=== PATIENT | female | born 1960 | race African-American/Black ===

== ENCOUNTER 2021-01-31 11:24 | Emergency (ER) | payer BC ==
[~2021-01-31] VITALS: Ht 160 cm; Wt 102.1 kg
[2021-01-31 11:53] LABS: ABSOLUTE NEUTROPHILS 8.1 thou/uL (1.4-8.2); BASOPHILS 0.4 % (0.0-2.0); HEMOGLOBIN 13.6 gm/dL (12.0-15.0); LYMPHOCYTES 11.3 % (24.0-44.0); MCH 28.9 pg (26.0-34.0); MCHC 33.2 g/dL (28.0-37.0); MCV 87.3 fL (80.0-100.0); MONOCYTES 1.7 % (1.0-8.0); PLATELET COUNT 238 thou/uL (150-400); POLYS 86.6 % (36.0-66.0); RDW 13.5 % (10.5-14.5); WBC 9.4 thou/uL (4.0-11.0)
[2021-01-31 11:59] LABS: ANION GAP 13 mmol/L (7-16); BUN 14 mg/dL (7-18); CHLORIDE 102 mmol/L (98-107); CO2 24 mmol/L (21-32); CREATININE 0.9 mg/dL (0.6-1.0); GLUCOSE 303 mg/dL (74-106); SODIUM 139 mmol/L (136-145)
[2021-01-31 12:00] LABS: POTASSIUM 4.1 mmol/L (3.5-5.1)
[2021-01-31 12:09] LABS: SGOT 19 U/L (15-37); SGPT 20 U/L (14-59); TOTAL BILIRUBIN 0.6 mg/dL (0.2-1.0); TOTAL PROTEIN 7.9 g/dL (6.4-8.2); TROPONIN-I <0.06 ng/mL (<0.06)
[2021-01-31 13:08] LABS: URINE BILIRUBIN NEGATIVE (Negative); URINE BLOOD TRACE (Negative); URINE CLARITY CLEAR; URINE COLOR YELLOW; URINE GLUCOSE-RANDOM* 3+ (Negative); URINE KETONES 1+ (Negative); URINE LEUKOCYTES-REFLEX NEGATIVE (Negative); URINE NITRITE-REFLEX NEGATIVE (Negative); URINE PROTEIN (DIPSTICK) NEGATIVE (Negative); URINE SPECIFIC GRAVITY 1.015 (1.005-1.035); URINE UROBILINOGEN 0.2 E.U./dl (0.2-1.0)
[2021-01-31 14:30] LABS: AMP/METHAMP Negative (Negative); BARBITURATES Negative (Negative); BENZODIAZEPINES Negative (Negative); COCAINE Negative (Negative); METHADONE Negative (Negative); OPIATES Negative (Negative); PCP Negative (Negative)
[2021-01-31] MEDS ORDERED: COMPAZINE10 M2 PO (16:04)
[2021-01-31] MEDS ORDERED: NORCO5 PO (16:04)
[2021-01-31] MEDS ORDERED: IMODIUM A-D2 MG PO (16:04)
[2021-01-31] MEDS ORDERED: BENTYL 10 MG CA10 MG PO (16:04)
[2021-01-31 16:09] VITALS: BP 143/79
--- NOTE | 2021-02-01 08:43 | EKG ---
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
== END 2021-01-31 16:12 | disposition home or self-care (01) ==
LOC: ER 11:24
PROVIDERS: Emergency Medicine
DX: E11.65 Type 2 diabetes mellitus with hyperglycemia (principal); Z20.822 Contact with and (suspected) exposure to COVID-19; F12.10 Cannabis abuse, uncomplicated; R11.2 Nausea with vomiting, unspecified; R07.89 Other chest pain; R19.7 Diarrhea, unspecified; R10.13 Epigastric pain; K21.9 Gastro-esophageal reflux disease without esophagitis; F17.210 Nicotine dependence, cigarettes, uncomplicated; Z91.041 Radiographic dye allergy status

== ENCOUNTER 2021-07-19 10:41 | Emergency (ER) | payer BC ==
[~2021-07-19] VITALS: Ht 160 cm; Wt 99.3 kg
[~2021-07-19 10:41] MED LIST: BENTYL 10 MG CA10 MG PO; COMPAZINE10 M2 PO; IMODIUM A-D2 MG PO; NORCO5 PO
[2021-07-19] MEDS ORDERED: LOSARTAN PO (11:10)
[2021-07-19] MEDS ORDERED: JANUVIA100 MG PO (11:10)
[2021-07-19] MEDS ORDERED: AMLODIPINE PO (11:11)
[2021-07-19] MEDS ORDERED: GLIMEPIRIDE PO (11:11)
[2021-07-19 11:18] LABS: URINE BLOOD 2+ (Negative); URINE COLOR YELLOW; URINE GLUCOSE-RANDOM* 3+ (Negative); URINE KETONES TRACE (Negative); URINE LEUKOCYTES-REFLEX NEGATIVE (Negative); URINE NITRITE-REFLEX NEGATIVE (Negative); URINE PROTEIN (DIPSTICK) 2+ (Negative); URINE SPECIFIC GRAVITY >= 1.030 (1.005-1.035); URINE UROBILINOGEN 0.2 E.U./dl (0.2-1.0)
[2021-07-19 11:23] LABS: URINE CLARITY HAZY
[2021-07-19 11:24] LABS: ICTOTEST (BILI CONFIRMATORY) Negative (Negative); URINE BILIRUBIN NEGATIVE (Negative)
[2021-07-19 11:27] LABS: ABSOLUTE NEUTROPHILS 6.7 thou/uL (1.4-8.2); BASOPHILS 0.8 % (0.0-2.0); EOSINOPHILS 0.7 % (0.0-3.0); HEMATOCRIT 42.9 % (37.0-47.0); HEMOGLOBIN 14.3 gm/dL (12.0-15.0); MCH 28.7 pg (26.0-34.0); MCHC 33.3 g/dL (28.0-37.0); MCV 86.3 fL (80.0-100.0); MONOCYTES 6.6 % (1.0-8.0); PLATELET COUNT 303 thou/uL (150-400); POLYS 71.9 % (36.0-66.0); RBC 4.97 mil/uL (4.20-5.00); RDW 13.6 % (10.5-14.5); WBC 9.4 thou/uL (4.0-11.0)
[2021-07-19 11:44] LABS: CALCIUM 9.4 mg/dL (8.5-10.1); CREATININE 1.3 mg/dL (0.6-1.0); POTASSIUM 3.6 mmol/L (3.5-5.1)
[2021-07-19 11:49] LABS: TOTAL BILIRUBIN 0.7 mg/dL (0.2-1.0); TOTAL PROTEIN 8.9 g/dL (6.4-8.2)
[2021-07-19] MEDS ORDERED: BENTYL 10 MG CA10 M1 PO (12:13)
[2021-07-19] MEDS ORDERED: ONDANSETRON HCL4 M2 PO (12:13)
[2021-07-19 12:23] LABS: SQUAMOUS >10 Many /LPF (0-3)
[2021-07-19 12:25] LABS: BACTERIA-REFLEX >30 Many /HPF (None Seen); CRYSTALS None Seen /LPF (None Seen); HYALINE CASTS 0-3 Few /LPF (None Seen); MUCUS 4-6 Moderate strn/LPF (None Seen); URINE RBC 1-2 Rare /HPF (NONE SEEN); URINE WBC-REFLEX 6-15 Few /HPF (0-5)
[2021-07-19 12:49] VITALS: BP 156/88
--- NOTE | 2021-07-20 07:12 | EKG ---
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 : 1960 Requested By: Puneet Lowry Order Number: [id number] MD: Frank Marquis Measurements Intervals [place] Rate: 84 P: 43 PA: 152 QRS: -31 QRSD: 83 T: 43 QT: 397 QTc: 470 Interpretive Statements Sinus rhythm Left ventricular hypertrophy Baseline wander in lead(s) I,II,aVR Compared to ECG 01/31/2021 11:37:40 Left ventricular hypertrophy now present Electronically Signed On 07-20-2021 7:12:27 CDT by Frank Marquis [email or web address] <ELECTRONICALLY SIGNED> By: Frank Marquis MD, [facility] 07/20/21 0712 D: 10/1114 14 Frank Marquis MD, FACC /EPI
[2021-07-22] MEDS ORDERED: CEPHALEXIN500 MG PO ×2 (08:29)
== END 2021-07-19 12:49 | disposition home or self-care (01) ==
LOC: ER 10:41
PROVIDERS: Nurse Practitioner
DX: R10.84 Generalized abdominal pain (principal); Z20.822 Contact with and (suspected) exposure to COVID-19; R11.2 Nausea with vomiting, unspecified; K21.9 Gastro-esophageal reflux disease without esophagitis; E11.9 Type 2 diabetes mellitus without complications; F12.90 Cannabis use, unspecified, uncomplicated; F17.210 Nicotine dependence, cigarettes, uncomplicated; Z79.899 Other long term (current) drug therapy; Z91.041 Radiographic dye allergy status

== ENCOUNTER 2021-07-20 12:48 | Emergency (ER) | payer BC ==
[~2021-07-20] VITALS: Ht 160 cm; Wt 99.3 kg
[~2021-07-20 12:48] MED LIST changes: +AMLODIPINE PO; +BENTYL 10 MG CA10 M1 PO; +GLIMEPIRIDE PO; +JANUVIA100 MG PO; +LOSARTAN PO; +ONDANSETRON HCL4 M2 PO
[2021-07-20 13:53] LABS: BASOPHILS 0.9 % (0.0-2.0); EOSINOPHILS 0.1 % (0.0-3.0); HEMOGLOBIN 14.1 gm/dL (12.0-15.0); LYMPHOCYTES 22.1 % (24.0-44.0); MCH 29.7 pg (26.0-34.0); MCHC 34.5 g/dL (28.0-37.0); MONOCYTES 7.3 % (1.0-8.0); PLATELET COUNT 308 thou/uL (150-400); POLYS 69.6 % (36.0-66.0); RBC 4.76 mil/uL (4.20-5.00); RDW 13.4 % (10.5-14.5); WBC 10.1 thou/uL (4.0-11.0)
[2021-07-20 14:15] LABS: ALBUMIN 3.5 g/dL (3.4-5.0); ANION GAP 11 mmol/L (7-16); BUN < 1 mg/dL (7-18); CHLORIDE 99 mmol/L (98-107); CO2 21 mmol/L (21-32); GLUCOSE 269 mg/dL (74-106); LIPASE 103 U/L (73-393); SGOT 6 U/L (15-37); SGPT 22 U/L (30-65); SODIUM 131 mmol/L (136-145); TOTAL BILIRUBIN 0.6 mg/dL (0.2-1.0); TOTAL PROTEIN 8.2 g/dL (6.4-8.2)
[2021-07-20 14:29] LABS: CALCIUM 9.3 mg/dL (8.5-10.1); CREATININE 0.9 mg/dL (0.6-1.0)
[2021-07-20 15:59] LABS: URINE BILIRUBIN 1+ (Negative); URINE BLOOD 2+ (Negative); URINE CLARITY CLEAR; URINE COLOR YELLOW; URINE GLUCOSE-RANDOM* TRACE (Negative); URINE KETONES TRACE (Negative); URINE NITRITE-REFLEX NEGATIVE (Negative); URINE PROTEIN (DIPSTICK) 2+ (Negative); URINE UROBILINOGEN 0.2 E.U./dl (0.2-1.0)
[2021-07-20 16:05] LABS: ICTOTEST (BILI CONFIRMATORY) Negative (Negative); URINE LEUKOCYTES-REFLEX 2+ (Negative)
[2021-07-20 16:23] LABS: CASTS None Seen /LPF (None Seen); CRYSTALS None Seen /LPF (None Seen); SQUAMOUS 0-3 Few /LPF (0-3); URINE WBC-REFLEX >25 Many /HPF (0-5)
[2021-07-20 18:58] VITALS: BP 142/72
[2021-07-22] MEDS ORDERED: CEPHALEXIN500 MG PO ×2 (08:29)
== END 2021-07-20 19:04 | disposition home or self-care (01) ==
LOC: ER 12:48
PROVIDERS: Emergency Medicine
DX: R10.13 Epigastric pain (principal); R11.2 Nausea with vomiting, unspecified; E11.9 Type 2 diabetes mellitus without complications; K21.9 Gastro-esophageal reflux disease without esophagitis; Z79.899 Other long term (current) drug therapy; Z79.891 Long term (current) use of opiate analgesic; Z91.041 Radiographic dye allergy status